=== PATIENT | male | born 1945 | race Caucasian/White ===

== ENCOUNTER 2016-05-17 09:59 | Inpatient (IN) | payer OTHER ==
[~2016-05-17] VITALS: Ht 177.8 cm; Wt 81.9 kg
[~2016-05-17 09:59] MED LIST: ACCOLATE20 MG PO; AMOX TR-K CLV1 EAC4 PO; ANALGESIC325 MG PO; ASPIRIN325 MG PO; Atrovent HFA Inhaler IH; CLINDAMYCIN HC300 MG PO; Cardizem CD,Cartia X PO; DAILY VITE1 EAC1 PO; DIGOX125 MCG PO; FLOVENT 22120 INHALA IH; Flovent 220 mcg IH; LANOXIN,DIGI0.125 MG PO; LITE COAT ASPI325 M1 PO; Lopressor PO; METOPROLOL TART25 MG PO; OMEPRAZOLE20 MG PO; PLAVIX75 MG PO; PRILOSEC20 MG PO; PROAIR HFA8.5 GM IH; SIMVASTATIN10 MG PO; THERAGRAN1 TABLET PO; TYLENOL REGULA325 MG PO; ZOCOR10 MG PO; Zocor PO
[2016-05-17 10:41] LABS: HEMATOCRIT 39.3 % (38.0-50.0); MCH 28.8 PG (29.0-34.0); MCHC 34.1 G/DL (30.0-36.0); MEAN PLAT.VOLUME 10.1 uM^3 (9.0-12.4); PLATELET COUNT 217 K/uL (156-360); RBC DIS.WIDTH-CV 14.2 % (11.8-14.6); RBC DIS.WIDTH-SD 43.1 % (39-53); RED BLOOD COUNT 4.66 M/uL (4.00-5.50)
[2016-05-17 10:46] LABS: MCV 84.3 FL (86-99); WHITE BLOOD COUNT 15.2 K/uL (4.1-10.2)
[2016-05-17] MEDS ORDERED: METOPROLOL TART25 MG PO (10:49)
[2016-05-17 10:50] LABS: CHLORIDE 98 mEq/L (99-109); POTASSIUM 3.8 mEq/L (3.7-5.4); SODIUM 129 mEq/L (136-147)
[2016-05-17 10:52] LABS: GLUCOSE 91 mg/dL (70-99)
[2016-05-17 10:54] LABS: ANION GAP 10 MEQ/L (2-14)
[2016-05-17 10:56] LABS: GFR ESTIMATE (CALCULATED) 40 mL/min/
[2016-05-17 10:57] LABS: UREA NITROGEN (BUN) 28 mg/dL (9-23)
[2016-05-17 16:05] VITALS: BP 145/65
[2016-05-17 19:54] VITALS: BP 114/60
[2016-05-18] VITALS: BP 105/61
[2016-05-18 04:00] VITALS: BP 107/63
[2016-05-18 07:23] VITALS: BP 131/80
[2016-05-18 08:26] LABS: ANION GAP 8 MEQ/L (2-14); CHLORIDE 105 MEQ/L (99-109); GLUCOSE 86 mg/dL (70-99); POTASSIUM 3.8 MEQ/L (3.7-5.4); SAMPLE HEMOLYSIS CHECK 0; SAMPLE ICTERIC CHECK 0; SAMPLE LIPEMIA CHECK 0; UREA NITROGEN (BUN) 20 mg/dL (9-23)
[2016-05-18 08:33] LABS: GFR ESTIMATE (CALCULATED) > 59 mL/min/; SODIUM 136 MEQ/L (136-147)
[2016-05-18 09:07] LABS: HEMATOCRIT 34.6 % (38.0-50.0); MCH 29.2 PG (29.0-34.0); MCHC 33.5 G/DL (30.0-36.0); MCV 87.2 FL (86-99); MEAN PLAT.VOLUME 10.7 uM^3 (9.0-12.4); PLATELET COUNT 179 K/uL (156-360); RBC DIS.WIDTH-CV 14.2 % (11.8-14.6); RBC DIS.WIDTH-SD 45.3 % (39-53); RED BLOOD COUNT 3.97 M/uL (4.00-5.50)
[2016-05-18 09:08] LABS: WHITE BLOOD COUNT 9.8 K/uL (4.1-10.2)
[2016-05-18 10:14] LABS: INFLUENZA A VIRAL ANTIGEN POSITIVE; INFLUENZA B VIRAL ANTIGEN NEGATIVE
[2016-05-18 11:00] VITALS: BP 138/64
[2016-05-18 11:12] VITALS: BP 120/54
[2016-05-18 14:48] VITALS: BP 116/54
[2016-05-19] VITALS: BP 118/56
[2016-05-19 07:17] LABS: ANION GAP 10 MEQ/L (2-14); CHLORIDE 108 MEQ/L (99-109); GFR ESTIMATE (CALCULATED) > 59 mL/min/; GLUCOSE 83 mg/dL (70-99); MAGNESIUM 1.6 mg/dl (1.3-2.7); POTASSIUM 3.4 MEQ/L (3.7-5.4); SAMPLE HEMOLYSIS CHECK 0; SAMPLE ICTERIC CHECK 0; SAMPLE LIPEMIA CHECK 0; SODIUM 140 MEQ/L (136-147); UREA NITROGEN (BUN) 14 mg/dL (9-23)
[2016-05-19 07:19] LABS: HEMATOCRIT 32.2 % (38.0-50.0); MCH 28.6 PG (29.0-34.0); MCHC 32.9 G/DL (30.0-36.0); MEAN PLAT.VOLUME 10.7 uM^3 (9.0-12.4); PLATELET COUNT 177 K/uL (156-360); RBC DIS.WIDTH-CV 14.5 % (11.8-14.6); RBC DIS.WIDTH-SD 45.8 % (39-53)
[2016-05-19 07:20] LABS: WHITE BLOOD COUNT 6.6 K/uL (4.1-10.2)
[2016-05-19 08:53] VITALS: BP 128/64
[2016-05-19] MEDS ORDERED: OSELTAMIVIR PHO75 MG PO (10:57)
[2016-05-19] MEDS ORDERED: AUGMENTIN500 MG PO (10:57)
== END 2016-05-19 13:32 | disposition home or self-care (01) | DRG 871 ==
LOC: EME 09:59 → 2EASTP 13:17 → EDOF 13:17 → 2EASTP 15:54
PROVIDERS: Internal Medicine
DX: A41.9 Sepsis, unspecified organism (principal); J15.4 Pneumonia due to other streptococci; J10.1 Influenza due to other identified influenza virus with other respiratory manifestations; N17.9 Acute kidney failure, unspecified; E87.1 Hypo-osmolality and hyponatremia; E87.3 Alkalosis; I25.10 Atherosclerotic heart disease of native coronary artery without angina pectoris; Z87.891 Personal history of nicotine dependence; Z95.5 Presence of coronary angioplasty implant and graft; I48.91 Unspecified atrial fibrillation; E78.00 Pure hypercholesterolemia, unspecified; J45.909 Unspecified asthma, uncomplicated
CPT/HCPCS: 71020; 80048; 80162; 83605; 83735; 85027; 87040; 87070; 87205; 87449; 87502; 93005; 94640; 94640 76; 99202; 99281; 99285; J0456; J0696; J1650; J7030; J7050

== ENCOUNTER 2016-07-06 05:30 | Day surgery (SDC) | payer OTHER ==
[~2016-07-06] VITALS: Ht 175.3 cm; Wt 82.1 kg
[~2016-07-06 05:30] MED LIST changes: +AUGMENTIN500 MG PO; +OSELTAMIVIR PHO75 MG PO
[2016-07-06] MEDS ORDERED: VITAMIN B-6100 MG PO (06:55)
[2016-07-06 07:02] VITALS: BP 164/79
[2016-07-06 07:27] VITALS: BP 145/77
[2016-07-06 11:29] VITALS: BP 168/95
[2016-07-06 12:11] VITALS: BP 157/76
== END 2016-07-06 12:15 | disposition home or self-care (01) ==
LOC: SDC
PROC: 08QE3ZZ Repair Right Retina, Percutaneous Approach (ICD-10-PCS; principal; 2016-07-06)
PROC: 08B43ZZ Excision of Right Vitreous, Percutaneous Approach (ICD-10-PCS; principal; 2016-07-06)
PROC: 3E0C329 Introduction of Other Anti-infective into Eye, Percutaneous Approach (ICD-10-PCS; principal; 2016-07-06)
DX: H43.391 Other vitreous opacities, right eye (principal); I25.10 Atherosclerotic heart disease of native coronary artery without angina pectoris; I48.91 Unspecified atrial fibrillation; E78.5 Hyperlipidemia, unspecified; I10 Essential (primary) hypertension; Z98.61 Coronary angioplasty status; Z79.82 Long term (current) use of aspirin; Z88.5 Allergy status to narcotic agent
CPT/HCPCS: J0690; J2250; J2405

== ENCOUNTER 2016-09-30 21:25 | Emergency (ER) | payer OTHER ==
[~2016-09-30] VITALS: Ht 177.8 cm; Wt 84.1 kg
[~2016-09-30 21:25] MED LIST changes: +VITAMIN B-6100 MG PO
[2016-09-30] MEDS ORDERED: KEFLEX500 MG PO (22:13)
[2016-09-30 22:43] VITALS: BP 141/81
== END 2016-09-30 22:43 | disposition home or self-care (01) ==
LOC: EME 21:25
PROC: 0HQGXZZ Repair Left Hand Skin, External Approach (ICD-10-PCS; principal; 2016-09-30)
DX: S61.412A Laceration without foreign body of left hand, initial encounter (principal); W26.8XXA Contact with other sharp object(s), not elsewhere classified, initial encounter; Y93.89 Activity, other specified
CPT/HCPCS: 99281; 99283

== ENCOUNTER 2017-02-16 17:14 | Emergency (ER) | payer OTHER ==
[~2017-02-16] VITALS: Ht 177.8 cm; Wt 86.3 kg
[~2017-02-16 17:14] MED LIST changes: +KEFLEX500 MG PO
[2017-02-16] MEDS ORDERED: KEFLEX500 MG PO (18:20)
[2017-02-16 18:30] VITALS: BP 164/85
== END 2017-02-16 18:31 | disposition home or self-care (01) ==
LOC: EME 17:14
PROC: 0HQLXZZ Repair Left Lower Leg Skin, External Approach (ICD-10-PCS; principal; 2017-02-16)
DX: S81.812A Laceration without foreign body, left lower leg, initial encounter (principal); W26.8XXA Contact with other sharp object(s), not elsewhere classified, initial encounter; Z87.891 Personal history of nicotine dependence; Z79.82 Long term (current) use of aspirin; Z88.5 Allergy status to narcotic agent; Z88.8 Allergy status to other drugs, medicaments and biological substances
CPT/HCPCS: 99281; 99284